=== PATIENT | female | born 1970 | race Caucasian/White ===

== ENCOUNTER 2020-09-03 11:28 | Inpatient (IN) | payer OTHER ==
[~2020-09-03] VITALS: Ht 162.6 cm; Wt 111.1 kg
[2020-09-03] MEDS ORDERED: PANTOPRAZOLE 40 MG 10ML VIAL IV STA (11:40)
[2020-09-03] MEDS ORDERED: HYDROMORPHONE 1MG/1ML INJ IV STA (11:40)
[2020-09-03] MEDS ORDERED: SODIUM CHLORIDE 0.9% 1000ML 1,000 ML IV STA (11:40)
[2020-09-03] MEDS ORDERED: ONDANSETRON HCL INJ 2MG/ML 2ML 2 MG/ML VIAL IV STA (11:40)
[2020-09-03 11:53] LABS: BASOPHILS # (AUTO) 0.1 (0.0-0.1); BASOPHILS % 0.3 % (0.0-1.0); EOSINOPHILS # (AUTO) 0.1 (0.0-0.4); EOSINOPHILS % 0.4 % (0.0-6.0); HEMATOCRIT 46.7 % (34.2-44.1); HEMOGLOBIN 16.5 g/dL (12.0-16.0); LYMPHOCYTES # (AUTO) 2.6 (1.0-3.2); LYMPHOCYTES % 16.6 % (18.0-39.1); MEAN CORPUSCULAR HEMOGLOBIN 30.7 pg (28-32); MEAN CORPUSCULAR HGB CONC 35.3 g/dL (31-35); MONOCYTES # (AUTO) 1.2 (0.2-0.8); MONOCYTES % 7.6 % (4.4-11.3); NEUTROPHILS # (AUTO) 11.6 (2.1-6.9); NEUTROPHILS % 74.6 % (38.7-80.0); PLATELET COUNT 333 x10e3/uL (140-360); RED BLOOD COUNT 5.37 x10e6/uL (3.6-5.1); RED CELL DISTRIBUTION WIDTH 14.7 % (11.7-14.4)
[2020-09-03 11:56] LABS: CLARITY,URINE CLOUDY (CLEAR); COLOR,URINE YELLOW (YELLOW); KETONES,URINE TRACE (NEGATIVE); LEUKOCYTE ESTERASE ,URINE NEGATIVE (NEGATIVE); NITRITE,URINE NEGATIVE (NEGATIVE); PROTEIN,URINE DIPSTICK 2+ (NEGATIVE); URINE UROBILINOGEN 0.2 mg/dL (0.2 - 1)
[2020-09-03 12:04] LABS: INR 0.89; PARTIAL THROMBOPLASTIN TIME 29.7 seconds (23.8-35.5); PROTHROMBIN TIME 12.6 seconds (11.9-14.5)
[2020-09-03 12:11] LABS: BACTERIA,URINE MANY /HPF; EPITHELIAL CELLS,URINE MANY /LPF
[2020-09-03 12:12] LABS: MUCUS,URINE MODERATE (RARE)
[2020-09-03 12:15] LABS: ALANINE AMINOTRANSFERASE 110 IU/L (0-55); ALBUMIN 2.9 g/dL (3.5-5.0); ALBUMIN/GLOBULIN RATIO 0.6 (0.8-2.0); ALKALINE PHOSPHATASE 465 IU/L (40-150); AMYLASE 903 U/L (25-125); ANION GAP 13.8 mmol/L (8-16); BLOOD UREA NITROGEN 11 mg/dL (7-26); BUN/CREATININE RATIO 13 (6-25); CALCIUM 8.4 mg/dL (8.4-10.2); CARBON DIOXIDE 32 mmol/L (22-29); CHLORIDE 84 mmol/L (98-107); CREATINE KINASE 21 IU/L (29-168); CREATININE, SERUM 0.88 mg/dL (0.57-1.11); EST GLOMERULAR FILTRATION RATE > 60 ML/MIN (60-); MAGNESIUM 3.3 MG/DL (1.3-2.1); SODIUM 127 mmol/L (136-145)
[2020-09-03 12:18] LABS: GLUCOSE 419 mg/dL (74-118); POTASSIUM 2.8 mmol/L (3.5-5.1)
[2020-09-03 12:39] LABS: LIPASE 2374 U/L (8-78)
[2020-09-03 12:43] LABS: CHOL/HDL RATIO 15.5 (3.0-3.6); CHOLESTEROL 263 MD/DL (0-199); HDL CHOLESTEROL 17 MG/DL (40-60); TRIGLYCERIDES 462 MG/DL (0-149)
[2020-09-03] MEDS ORDERED: POTASSIUM CHLORIDE 10MEQ/100ML 200 ML IV ONE (12:45)
[2020-09-03] MEDS ORDERED: KCL 20MEQ/.9 SOD CHL 1,000 ML IV ONE ×3 (12:45→18:00)
[2020-09-03 12:55] LABS: AMPHETAMINES SCREEN,URINE NEGATIVE (NEGATIVE); BENZODIAZEPINES SCREEN,URINE NEGATIVE (NEGATIVE); PHENCYCLIDINE SCREEN,URINE NEGATIVE (NEGATIVE)
[2020-09-03] MEDS ORDERED: INSULIN REGULAR, HUMAN 100 UNIT/1 ML 3ML VIAL IV ONE (13:00)
[2020-09-03] MEDS ORDERED: SODIUM CHLORIDE 0.9% 50ML 50 ML ONE (13:09)
[2020-09-03] MEDS ORDERED: IOPAMIDOL 370 MG/ML 200 ML INFUS..BTL INJ ONE (13:09)
[2020-09-03] MEDS: PIPERACILLIN/TAZOBAC 3.375 GM in SODIUM CHLORIDE 0.9% 50ML 50 ML IV SCH ×2 (13:28→19:35)
[2020-09-03] MEDS ORDERED: POTASSIUM CHLORIDE 20 MEQ TAB CR PO STA (14:38)
[2020-09-03] MEDS ORDERED: DEXTROSE 50% SYRINGE 50 ML IV PRN (14:45)
[2020-09-03] MEDS ORDERED: INSULIN REGULAR, HUMAN 3ML VL 100 UNIT in SODIUM CHLORIDE 0.9% 99 ML IV SCH ×2 (15:30)
[2020-09-03 15:51] VITALS: BP 137/88
[2020-09-03] MEDS ORDERED: SODIUM CHLORIDE 0.9% 1000ML 1,000 ML ONE (16:09)
[2020-09-03 17:39] VITALS: BP 123/76
[2020-09-03] MEDS: ONDANSETRON HCL INJ 2MG/ML 2ML 2 MG/ML VIAL IV PRN ×2 (17:45→21:49)
[2020-09-03] MEDS: HYDROMORPHONE 1MG/1ML INJ IV PRN ×2 (17:45→21:49)
[2020-09-03] MEDS ORDERED: POTASSIUM CHLORIDE 20 MEQ TAB CR PO ONE (18:02)
[2020-09-03 19:00] VITALS: BP 130/81
[2020-09-03 21:07] LABS: CREATINE KINASE MB 0.4 ng/mL (0-5.0)
[2020-09-03 23:00] VITALS: BP 124/70
[2020-09-03] MEDS ORDERED: LACTATED RINGER'S 1,000 ML INJ ONE (23:45)
[2020-09-04] VITALS (9 sets, daily range): BP systolic 113–139; BP diastolic 58–81
[2020-09-04] MEDS: PIPERACILLIN/TAZOBAC 3.375 GM in SODIUM CHLORIDE 0.9% 50ML 50 ML IV SCH ×4 (00:53→18:59)
[2020-09-04] MEDS: ONDANSETRON HCL INJ 2MG/ML 2ML 2 MG/ML VIAL IV PRN ×4 (03:05→21:07)
[2020-09-04] MEDS: HYDROMORPHONE 1MG/1ML INJ IV PRN ×5 (03:05→21:07)
[2020-09-04 05:42] LABS: BASOPHILS # (AUTO) 0.1 (0.0-0.1); BASOPHILS % 0.3 % (0.0-1.0); EOSINOPHILS # (AUTO) 0.2 (0.0-0.4); EOSINOPHILS % 1.1 % (0.0-6.0); HEMATOCRIT 45.6 % (34.2-44.1); HEMOGLOBIN 15.4 g/dL (12.0-16.0); LYMPHOCYTES # (AUTO) 2.3 (1.0-3.2); LYMPHOCYTES % 12.8 % (18.0-39.1); MEAN CORPUSCULAR HEMOGLOBIN 30.9 pg (28-32); MEAN CORPUSCULAR HGB CONC 33.8 g/dL (31-35); MEAN CORPUSCULAR VOLUME 91.4 fL (81-99); MONOCYTES # (AUTO) 1.9 (0.2-0.8); MONOCYTES % 10.5 % (4.4-11.3); NEUTROPHILS # (AUTO) 13.3 (2.1-6.9); NEUTROPHILS % 74.7 % (38.7-80.0); PLATELET COUNT 354 x10e3/uL (140-360); RED BLOOD COUNT 4.99 x10e6/uL (3.6-5.1); RED CELL DISTRIBUTION WIDTH 15.1 % (11.7-14.4)
[2020-09-04 06:15] LABS: ALANINE AMINOTRANSFERASE 80 IU/L (0-55); ALBUMIN 2.6 g/dL (3.5-5.0); ALBUMIN/GLOBULIN RATIO 0.5 (0.8-2.0); ALKALINE PHOSPHATASE 362 IU/L (40-150); AMYLASE 610 U/L (25-125); ANION GAP 16.2 mmol/L (8-16); BLOOD UREA NITROGEN 9 mg/dL (7-26); BUN/CREATININE RATIO 13 (6-25); CARBON DIOXIDE 26 mmol/L (22-29); CHLORIDE 93 mmol/L (98-107); EST GLOMERULAR FILTRATION RATE > 60 ML/MIN (60-); GLUCOSE 125 mg/dL (74-118); LIPASE 958 U/L (8-78); POTASSIUM 3.2 mmol/L (3.5-5.1); SODIUM 132 mmol/L (136-145)
[2020-09-04] MEDS ORDERED: DEXTROSE 50% SYRINGE 50 ML IV PRN ×2 (07:45→14:45)
[2020-09-04] MEDS ORDERED: INSULIN REGULAR, HUMAN 3ML VL 300 UNIT in SODIUM CHLORIDE 0.45% 100 ML 300 ML IV SCH ×2 (07:45)
[2020-09-04] MEDS ORDERED: DEXTROSE 5%/0.45% SOD CHL 1,000 ML IV SCH (07:45)
[2020-09-04] MEDS: PANTOPRAZOLE 40 MG 10ML VIAL IV SCH (09:28)
[2020-09-04] MEDS: FENOFIBRATE 145 MG TAB PO SCH (09:30)
[2020-09-04] MEDS ORDERED: ACETAMINOPHEN/CODEINE 300MG - 30MG TAB PO PRN (10:15)
[2020-09-04] MEDS ORDERED: POTASSIUM CHLORIDE 20 MEQ TAB CR PO PRN (10:15)
[2020-09-04] MEDS ORDERED: INSULIN REGULAR, HUMAN 3ML VL 100 UNIT in SODIUM CHLORIDE 0.9% 100 ML IV SCH ×2 (13:45)
[2020-09-04 15:29] LABS: FREE T4 (FREE THYROXINE) 0.98 ng/dL (0.8-1.8); THYROID STIMULATING HORMONE 0.692 uIU/mL (0.350-4.940)
[2020-09-04] MEDS: DEXTROSE 5%/0.45% SOD CHL 1,000 ML IV SCH (17:04)
[2020-09-04] MEDS: INSULIN REGULAR, HUMAN 3ML VL 100 UNIT in SODIUM CHLORIDE 0.9% 100 ML IV SCH ×2 (20:13)
[2020-09-04] MEDS: HEPARIN SOD (PORCINE) 5,000 UNIT/ML VIAL SC SCH (21:06)
[2020-09-04] MEDS: ATORVASTATIN 10 MG TAB PO SCH (21:06)
[2020-09-05] VITALS (9 sets, daily range): BP systolic 103–124; BP diastolic 58–78
[2020-09-05] MEDS: INSULIN REGULAR, HUMAN 3ML VL 100 UNIT in SODIUM CHLORIDE 0.9% 100 ML IV SCH ×4 (00:07→09:09)
[2020-09-05] MEDS: DEXTROSE 5%/0.45% SOD CHL 1,000 ML IV SCH ×2 (00:33→10:08)
[2020-09-05] MEDS: ONDANSETRON HCL INJ 2MG/ML 2ML 2 MG/ML VIAL IV PRN ×6 (01:08→20:35)
[2020-09-05] MEDS: HYDROMORPHONE 1MG/1ML INJ IV PRN ×6 (01:08→20:35)
[2020-09-05] MEDS: PIPERACILLIN/TAZOBAC 3.375 GM in SODIUM CHLORIDE 0.9% 50ML 50 ML IV SCH ×4 (01:08→20:23)
[2020-09-05] MEDS ORDERED: TRAMADOL HCL 50 MG TAB PO PRN (02:00)
[2020-09-05 05:26] LABS: BASOPHILS # (AUTO) 0.1 (0.0-0.1); BASOPHILS % 0.6 % (0.0-1.0); EOSINOPHILS # (AUTO) 0.6 (0.0-0.4); EOSINOPHILS % 3.4 % (0.0-6.0); HEMATOCRIT 44.1 % (34.2-44.1); LYMPHOCYTES # (AUTO) 2.3 (1.0-3.2); MEAN CORPUSCULAR HEMOGLOBIN 31.4 pg (28-32); MEAN CORPUSCULAR VOLUME 92.3 fL (81-99); MONOCYTES # (AUTO) 1.9 (0.2-0.8); MONOCYTES % 10.5 % (4.4-11.3); NEUTROPHILS # (AUTO) 12.6 (2.1-6.9); NEUTROPHILS % 71.8 % (38.7-80.0); PLATELET COUNT 429 x10e3/uL (140-360); RED BLOOD COUNT 4.78 x10e6/uL (3.6-5.1); RED CELL DISTRIBUTION WIDTH 14.9 % (11.7-14.4)
[2020-09-05 05:42] LABS: PROTHROMBIN TIME 13.8 seconds (11.9-14.5)
[2020-09-05 05:47] LABS: ALANINE AMINOTRANSFERASE 64 IU/L (0-55); ALBUMIN 2.4 g/dL (3.5-5.0); ALBUMIN/GLOBULIN RATIO 0.4 (0.8-2.0); ALKALINE PHOSPHATASE 311 IU/L (40-150); BLOOD UREA NITROGEN 7 mg/dL (7-26); BUN/CREATININE RATIO 10 (6-25); CALCIUM 8.4 mg/dL (8.4-10.2); CARBON DIOXIDE 26 mmol/L (22-29); CHLORIDE 94 mmol/L (98-107); CREATININE, SERUM 0.73 mg/dL (0.57-1.11); EST GLOMERULAR FILTRATION RATE > 60 ML/MIN (60-); GLUCOSE 137 mg/dL (74-118); SODIUM 133 mmol/L (136-145)
[2020-09-05] MEDS: FENOFIBRATE 145 MG TAB PO SCH (09:03)
[2020-09-05] MEDS: PANTOPRAZOLE 40 MG 10ML VIAL IV SCH (09:03)
[2020-09-05] MEDS: HEPARIN SOD (PORCINE) 5,000 UNIT/ML VIAL SC SCH ×2 (09:08→20:24)
[2020-09-05] MEDS ORDERED: SODIUM CHLORIDE 0.9% 50ML 50 ML ONE (10:05)
[2020-09-05] MEDS ORDERED: GADOBENATE DIMEGLUMINE 1 ML IV ONE (10:05)
[2020-09-05] MEDS: POTASSIUM CHLORIDE 40 MEQ in DEXTROSE 5%/0.45% SOD CHL 1,000 ML IV SCH ×2 (14:25→22:58)
[2020-09-05] MEDS: ATORVASTATIN 10 MG TAB PO SCH (20:23)
[2020-09-05] MEDS ORDERED: INSULIN GLARGINE 100 UNITS/ML VIAL SQ SCH (21:00)
[2020-09-06] VITALS (7 sets, daily range): BP systolic 110–127; BP diastolic 62–77
[2020-09-06] MEDS: HYDROMORPHONE 1MG/1ML INJ IV PRN ×8 (00:14→23:09)
[2020-09-06] MEDS: ONDANSETRON HCL INJ 2MG/ML 2ML 2 MG/ML VIAL IV PRN ×6 (00:14→23:09)
[2020-09-06] MEDS: PIPERACILLIN/TAZOBAC 3.375 GM in SODIUM CHLORIDE 0.9% 50ML 50 ML IV SCH ×4 (01:48→20:15)
[2020-09-06 04:51] LABS: BASOPHILS # (AUTO) 0.1 (0.0-0.1); BASOPHILS % 0.5 % (0.0-1.0); EOSINOPHILS # (AUTO) 0.8 (0.0-0.4); EOSINOPHILS % 4.8 % (0.0-6.0); HEMATOCRIT 39.1 % (34.2-44.1); HEMOGLOBIN 13.1 g/dL (12.0-16.0); LYMPHOCYTES # (AUTO) 2.3 (1.0-3.2); LYMPHOCYTES % 13.6 % (18.0-39.1); MEAN CORPUSCULAR HGB CONC 33.5 g/dL (31-35); MEAN CORPUSCULAR VOLUME 92.7 fL (81-99); MONOCYTES # (AUTO) 1.9 (0.2-0.8); MONOCYTES % 11.2 % (4.4-11.3); NEUTROPHILS # (AUTO) 11.6 (2.1-6.9); PLATELET COUNT 481 x10e3/uL (140-360); RED BLOOD COUNT 4.22 x10e6/uL (3.6-5.1); RED CELL DISTRIBUTION WIDTH 14.7 % (11.7-14.4)
[2020-09-06 05:12] LABS: ALANINE AMINOTRANSFERASE 41 IU/L (0-55); ALBUMIN/GLOBULIN RATIO 0.4 (0.8-2.0); ALKALINE PHOSPHATASE 241 IU/L (40-150); AMYLASE 125 U/L (25-125); ANION GAP 14.1 mmol/L (8-16); BLOOD UREA NITROGEN 5 mg/dL (7-26); BUN/CREATININE RATIO 8 (6-25); CALCIUM 8.1 mg/dL (8.4-10.2); CARBON DIOXIDE 27 mmol/L (22-29); CHLORIDE 96 mmol/L (98-107); CREATININE, SERUM 0.63 mg/dL (0.57-1.11); EST GLOMERULAR FILTRATION RATE > 60 ML/MIN (60-); GLUCOSE 118 mg/dL (74-118); LIPASE 162 U/L (8-78); POTASSIUM 3.1 mmol/L (3.5-5.1); SODIUM 134 mmol/L (136-145)
[2020-09-06 05:53] LABS: MAGNESIUM 2.2 MG/DL (1.3-2.1); PHOSPHORUS 2.4 MG/DL (2.3-4.7)
[2020-09-06] MEDS: POTASSIUM CHLORIDE 40 MEQ in DEXTROSE 5%/0.45% SOD CHL 1,000 ML IV SCH ×2 (07:10→16:36)
[2020-09-06] MEDS: FENOFIBRATE 145 MG TAB PO SCH (08:35)
[2020-09-06] MEDS: PANTOPRAZOLE 40 MG 10ML VIAL IV SCH (08:35)
[2020-09-06] MEDS: HEPARIN SOD (PORCINE) 5,000 UNIT/ML VIAL SC SCH ×2 (08:36→20:16)
[2020-09-06] MEDS ORDERED: INSULIN LISPRO 100 UNIT/1 ML 3ML VIAL SQ NR (14:15)
[2020-09-06] MEDS ORDERED: DEXTROSE 50% SYRINGE 50 ML IV PRN (14:15)
[2020-09-06] MEDS ORDERED: POTASSIUM CHLORIDE 10MEQ EA PO ONE (15:00)
[2020-09-06] MEDS: INSULIN LISPRO 100 UNIT/1 ML 3ML VIAL SQ SCH ×2 (16:30→20:16)
[2020-09-06] MEDS: ATORVASTATIN 10 MG TAB PO SCH (20:15)
[2020-09-06] MEDS: INSULIN GLARGINE 100 UNITS/ML VIAL SQ SCH (20:16)
[2020-09-07] VITALS (9 sets, daily range): BP systolic 108–139; BP diastolic 66–79
[2020-09-07] MEDS: PIPERACILLIN/TAZOBAC 3.375 GM in SODIUM CHLORIDE 0.9% 50ML 50 ML IV SCH ×4 (01:32→20:22)
[2020-09-07] MEDS: HYDROMORPHONE 1MG/1ML INJ IV PRN ×5 (02:14→20:50)
[2020-09-07 05:57] LABS: BASOPHILS # (AUTO) 0.1 (0.0-0.1); BASOPHILS % 0.7 % (0.0-1.0); EOSINOPHILS # (AUTO) 0.8 (0.0-0.4); EOSINOPHILS % 5.4 % (0.0-6.0); HEMATOCRIT 37.9 % (34.2-44.1); HEMOGLOBIN 12.5 g/dL (12.0-16.0); LYMPHOCYTES # (AUTO) 2.4 (1.0-3.2); LYMPHOCYTES % 15.8 % (18.0-39.1); MEAN CORPUSCULAR HEMOGLOBIN 30.9 pg (28-32); MEAN CORPUSCULAR VOLUME 93.6 fL (81-99); MONOCYTES % 13.1 % (4.4-11.3); NEUTROPHILS # (AUTO) 9.8 (2.1-6.9); NEUTROPHILS % 64.2 % (38.7-80.0); PLATELET COUNT 535 x10e3/uL (140-360); RED BLOOD COUNT 4.05 x10e6/uL (3.6-5.1); RED CELL DISTRIBUTION WIDTH 14.7 % (11.7-14.4)
[2020-09-07 06:22] LABS: ALANINE AMINOTRANSFERASE 34 IU/L (0-55); ALBUMIN/GLOBULIN RATIO 0.4 (0.8-2.0); ALKALINE PHOSPHATASE 251 IU/L (40-150); ANION GAP 13.5 mmol/L (8-16); BLOOD UREA NITROGEN 5 mg/dL (7-26); BUN/CREATININE RATIO 7 (6-25); CALCIUM 8.1 mg/dL (8.4-10.2); CARBON DIOXIDE 25 mmol/L (22-29); CHLORIDE 99 mmol/L (98-107); CREATININE, SERUM 0.68 mg/dL (0.57-1.11); EST GLOMERULAR FILTRATION RATE > 60 ML/MIN (60-); GLUCOSE 147 mg/dL (74-118); POTASSIUM 3.5 mmol/L (3.5-5.1); SODIUM 134 mmol/L (136-145)
[2020-09-07 06:51] LABS: CHOL/HDL RATIO 8.3 (3.0-3.6)
[2020-09-07] MEDS ORDERED: SODIUM CHLORIDE 0.9% 50ML 50 ML ONE ×3 (07:14→20:19)
[2020-09-07] MEDS ORDERED: PIPERACILLIN/TAZOBAC 3.375 GM VIAL ONE ×3 (07:14→20:19)
[2020-09-07] MEDS: INSULIN LISPRO 100 UNIT/1 ML 3ML VIAL SQ SCH ×4 (08:00→20:43)
[2020-09-07 08:43] LABS: ANISOCYTOSIS SLIGHT; BAND NEUTROPHILS % (MANUAL) 1 %; EOSINOPHILS % (MANUAL) 4 % (0-7); LYMPHOCYTES % (MANUAL) 13 % (19-48); MONOCYTES % (MANUAL) 11 % (3.4-9.0); NEUTROPHILS % (MANUAL) 69 % (40-74); PLATELET ESTIMATE MODERATELY INCREASED; PLATELET MORPHOLOGY COMMENT NORMAL; RBC MORPHOLOGY COMMENT NORMAL
[2020-09-07] MEDS: FENOFIBRATE 145 MG TAB PO SCH (09:04)
[2020-09-07] MEDS: PANTOPRAZOLE 40 MG 10ML VIAL IV SCH (09:04)
[2020-09-07] MEDS: HEPARIN SOD (PORCINE) 5,000 UNIT/ML VIAL SC SCH ×2 (09:56→21:39)
[2020-09-07] MEDS: ATORVASTATIN 10 MG TAB PO SCH (20:43)
[2020-09-07] MEDS: ONDANSETRON HCL INJ 2MG/ML 2ML 2 MG/ML VIAL IV PRN (20:50)
[2020-09-07] MEDS: INSULIN GLARGINE 100 UNITS/ML VIAL SQ SCH (21:00)
[2020-09-08] MEDS: HYDROMORPHONE 1MG/1ML INJ IV PRN ×4 (01:07→12:24)
[2020-09-08] MEDS ORDERED: PIPERACILLIN/TAZOBAC 3.375 GM VIAL ONE ×2 (01:20→07:36)
[2020-09-08] MEDS: PIPERACILLIN/TAZOBAC 3.375 GM in SODIUM CHLORIDE 0.9% 50ML 50 ML IV SCH ×2 (01:55→08:00)
[2020-09-08] MEDS: ONDANSETRON HCL INJ 2MG/ML 2ML 2 MG/ML VIAL IV PRN ×2 (05:19→08:33)
[2020-09-08 05:25] VITALS: BP 153/79
[2020-09-08 06:04] LABS: BASOPHILS # (AUTO) 0.1 (0.0-0.1); BASOPHILS % 0.8 % (0.0-1.0); EOSINOPHILS # (AUTO) 0.9 (0.0-0.4); EOSINOPHILS % 6.1 % (0.0-6.0); HEMATOCRIT 38.7 % (34.2-44.1); HEMOGLOBIN 12.7 g/dL (12.0-16.0); LYMPHOCYTES # (AUTO) 2.6 (1.0-3.2); LYMPHOCYTES % 17.7 % (18.0-39.1); MEAN CORPUSCULAR HEMOGLOBIN 30.8 pg (28-32); MEAN CORPUSCULAR HGB CONC 32.8 g/dL (31-35); MEAN CORPUSCULAR VOLUME 93.9 fL (81-99); MONOCYTES # (AUTO) 1.9 (0.2-0.8); MONOCYTES % 13.1 % (4.4-11.3); NEUTROPHILS # (AUTO) 8.8 (2.1-6.9); PLATELET COUNT 563 x10e3/uL (140-360); RED BLOOD COUNT 4.12 x10e6/uL (3.6-5.1); RED CELL DISTRIBUTION WIDTH 14.8 % (11.7-14.4)
[2020-09-08 06:26] LABS: ANION GAP 14.6 mmol/L (8-16); BLOOD UREA NITROGEN < 5 mg/dL (7-26); CALCIUM 8.4 mg/dL (8.4-10.2); CARBON DIOXIDE 24 mmol/L (22-29); CHLORIDE 101 mmol/L (98-107); CREATININE, SERUM 0.64 mg/dL (0.57-1.11); EST GLOMERULAR FILTRATION RATE > 60 ML/MIN (60-); GLUCOSE 133 mg/dL (74-118); POTASSIUM 3.6 mmol/L (3.5-5.1); SODIUM 136 mmol/L (136-145)
[2020-09-08 06:42] LABS: BUN/CREATININE RATIO 8 (6-25)
[2020-09-08] MEDS ORDERED: SODIUM CHLORIDE 0.9% 50ML 50 ML ONE (07:36)
[2020-09-08 07:41] VITALS: BP 116/69
[2020-09-08 08:09] VITALS: BP 116/69
[2020-09-08] MEDS: INSULIN LISPRO 100 UNIT/1 ML 3ML VIAL SQ SCH ×2 (08:17→11:30)
[2020-09-08 09:51] LABS: EOSINOPHILS % (MANUAL) 4 % (0-7); LYMPHOCYTES % (MANUAL) 17 % (19-48); MONOCYTES % (MANUAL) 9 % (3.4-9.0); MYELOCYTES % (MANUAL) 2 % (0-0); NEUTROPHILS % (MANUAL) 63 % (40-74); PLATELET ESTIMATE MODERATELY INCREASED
[2020-09-08 09:52] LABS: PLATELET MORPHOLOGY COMMENT RARE EDTA CLUMPING; RBC MORPHOLOGY COMMENT NORMAL
[2020-09-08] MEDS: PANTOPRAZOLE 40 MG 10ML VIAL IV SCH (09:58)
[2020-09-08] MEDS: FENOFIBRATE 145 MG TAB PO SCH (09:58)
[2020-09-08] MEDS: HEPARIN SOD (PORCINE) 5,000 UNIT/ML VIAL SC SCH (09:59)
[2020-09-08 11:40] VITALS: BP 118/70
[2020-09-08] MEDS ORDERED: LIPOFEN150 MG PO (12:31)
[2020-09-08] MEDS ORDERED: ATORVASTATIN CA10 MG PO (12:31)
[2020-09-08] MEDS ORDERED: ULTRAM 50MG50 MG PO (12:32)
[2020-09-08] MEDS ORDERED: NOVOLOG100 UNIT/1 SC (12:36)
[2020-09-08] MEDS ORDERED: PANTOPRAZOLE SO40 MG PO (12:36)
[2020-09-08] MEDS ORDERED: AUGMENTIN 500-1 EACH PO (12:36)
[2020-09-08] MEDS ORDERED: ULTRAM50 MG PO (14:41)
== END 2020-09-08 16:00 | disposition home or self-care (01) | DRG 438 ==
LOC: ER 12:26 → ERHOLD 15:47 → ICU 15:49 → MED/SURG3 09-07 04:00
PROVIDERS: ADMIT Internal Medicine; ATTEND Internal Medicine
DX: K85.90 Acute pancreatitis without necrosis or infection, unspecified (principal); E11.10 Type 2 diabetes mellitus with ketoacidosis without coma; K56.7 Ileus, unspecified; E87.6 Hypokalemia; K76.0 Fatty (change of) liver, not elsewhere classified; E78.5 Hyperlipidemia, unspecified; Z20.822 Contact with and (suspected) exposure to COVID-19
CPT/HCPCS: 36415; 71045; 74177; 74183; 80048; 80053; 80061; 80307; 80329; 81001; 82150; 82550; 82553; 82948; 83036; 83690; 83735; 84100; 84439; 84443; 84478; 84484; 85025; 85610; 85730; 87086; 93005; 99285; J1170; J1644; J1815; J1817; J2405; J2543; J3480; J7030; J7050; Q9967; U0002

== ENCOUNTER 2024-09-23 21:20 | Observation (INO) | payer OTHER ==
[~2024-09-23] VITALS: Ht 162.6 cm; Wt 104.8 kg
[~2024-09-23 21:20] MED LIST: ATORVASTATIN CA10 MG PO; AUGMENTIN 500-1 EACH PO; LIPOFEN150 MG PO; NOVOLOG100 UNIT/1 SC; PANTOPRAZOLE SO40 MG PO; ULTRAM 50MG50 MG PO; ULTRAM50 MG PO
[2024-09-23 21:22] VITALS: TEMP 98.1
[2024-09-23 22:08] LABS: BASOPHILS % 0.5 % (0.0-1.0); EOSINOPHILS # (AUTO) 0.3 (0.0-0.4); EOSINOPHILS % 3.6 % (0.0-6.0); HEMATOCRIT 44.3 % (34.2-44.1); HEMOGLOBIN 14.5 g/dL (12.0-16.0); LYMPHOCYTES # (AUTO) 2.3 (1.0-3.2); LYMPHOCYTES % 26.5 % (18.0-39.1); MEAN CORPUSCULAR HEMOGLOBIN 29.5 pg (28-32); MEAN CORPUSCULAR HGB CONC 32.7 g/dL (31-35); MONOCYTES # (AUTO) 0.7 (0.2-0.8); MONOCYTES % 8.2 % (4.4-11.3); NEUTROPHILS # (AUTO) 5.2 (2.1-6.9); NEUTROPHILS % 60.8 % (38.7-80.0); PLATELET COUNT 317 x10e3/uL (140-360); RED BLOOD COUNT 4.92 x10e6/uL (3.6-5.1); RED CELL DISTRIBUTION WIDTH 13.6 % (11.7-14.4); WHITE BLOOD COUNT 8.55 x10e3/uL (4.8-10.8)
[2024-09-23 22:21] LABS: ALBUMIN/GLOBULIN RATIO 1.1 (0.8-2.0); BILIRUBIN,TOTAL 0.4 mg/dL (0.2-1.2); CALCIUM 9.3 mg/dL (8.4-10.2); TOTAL PROTEIN 7.7 g/dL (6.5-8.1)
[2024-09-23 22:35] LABS: CREATININE, SERUM 0.91 mg/dL (0.57-1.11)
[2024-09-23 23:45] VITALS: PULSE 66; RESP 26
[2024-09-23] MEDS ORDERED: ONDANSETRON HCL INJ 2MG/ML 2ML 2 MG/ML VIAL IV PRN (23:45)
[2024-09-23] MEDS ORDERED: Morphine 2mg Syringe 2 MG/ML SYR IV PRN (23:45)
[2024-09-23] MEDS ORDERED: DEXTROSE 50% SYRINGE 50 ML IV PRN (23:45)
[2024-09-24] VITALS (8 sets, daily range): BP systolic 115–124; BP diastolic 72–84; PULSE 61–80; RESP 18; TEMP 97.5–98; O2SAT 94–99
[2024-09-24] MEDS: ACETAMINOPHEN 325 MG TAB PO ONE (00:28)
[2024-09-24] MEDS ORDERED: FUROSEMIDE40 MG PO (00:57)
[2024-09-24] MEDS ORDERED: OZEMPIC1 MG/0.71 (00:57)
[2024-09-24] MEDS ORDERED: METFORMIN HCL850 MG PO (00:57)
[2024-09-24] MEDS ORDERED: METOPROLOL TART50 MG PO (00:57)
[2024-09-24] MEDS ORDERED: JARDIANCE10 MG (00:57)
[2024-09-24] MEDS ORDERED: ASPIRIN81 MG PO (00:57)
[2024-09-24] MEDS ORDERED: MELATONIN 5 MG TABLET PO PRN (02:30)
[2024-09-24] MEDS ORDERED: HYDRALAZINE HCL 20 MG/ML VIAL IV PRN (02:30)
[2024-09-24] MEDS ORDERED: DOCUSATE SODIUM 100 MG CAP PO PRN (02:30)
[2024-09-24] MEDS ORDERED: SIMETHICONE 80 MG CHEW PO PRN (02:30)
[2024-09-24] MEDS ORDERED: BENZONATATE 100 MG CAP PO PRN (02:30)
[2024-09-24] MEDS ORDERED: LIDOCAINE 4% PATCH TP PRN (02:30)
[2024-09-24] MEDS ORDERED: POTASSIUM CHLORIDE 20 MEQ TAB CR PO PRN (02:30)
[2024-09-24] MEDS ORDERED: ALBUTEROL/IPRATROPIUM 3 ML NEB NEB PRN (02:30)
[2024-09-24] MEDS ORDERED: DIPHENHYDRAMINE HCL 25 MG CAP PO PRN (02:30)
[2024-09-24] MEDS ORDERED: DEXTROSE 50% SYRINGE 50 ML IV PRN (02:30)
[2024-09-24 05:07] LABS: BASOPHILS # (AUTO) 0.1 (0.0-0.1); BASOPHILS % 0.6 % (0.0-1.0); EOSINOPHILS # (AUTO) 0.4 (0.0-0.4); HEMOGLOBIN 14.2 g/dL (12.0-16.0); LYMPHOCYTES # (AUTO) 2.4 (1.0-3.2); LYMPHOCYTES % 26.9 % (18.0-39.1); MEAN CORPUSCULAR HEMOGLOBIN 29.6 pg (28-32); MEAN CORPUSCULAR HGB CONC 32.3 g/dL (31-35); MEAN CORPUSCULAR VOLUME 91.9 fL (81-99); MONOCYTES # (AUTO) 0.8 (0.2-0.8); MONOCYTES % 9.1 % (4.4-11.3); NEUTROPHILS # (AUTO) 5.2 (2.1-6.9); NEUTROPHILS % 59.2 % (38.7-80.0); PLATELET COUNT 297 x10e3/uL (140-360); RED BLOOD COUNT 4.79 x10e6/uL (3.6-5.1); RED CELL DISTRIBUTION WIDTH 13.6 % (11.7-14.4); WHITE BLOOD COUNT 8.77 x10e3/uL (4.8-10.8)
[2024-09-24 05:33] LABS: ALBUMIN 3.5 g/dL (3.5-5.0); ALBUMIN/GLOBULIN RATIO 0.9 (0.8-2.0); ANION GAP 15.7 mmol/L (8-16); BILIRUBIN,TOTAL 0.4 mg/dL (0.2-1.2); CREATININE, SERUM 0.8 mg/dL (0.57-1.11); POTASSIUM 3.7 mmol/L (3.5-5.1); TOTAL PROTEIN 7.3 g/dL (6.5-8.1)
[2024-09-24] MEDS: INSULIN REGULAR, HUMAN 100 UNIT/1 ML SQ SCH (07:30)
[2024-09-24 07:37] LABS: TROPONIN I 0.009 ng/mL (0-0.300)
[2024-09-24] MEDS ORDERED: ASPIRIN 81 MG ENTERIC COATED PO SCH (09:00)
[2024-09-24] MEDS: PANTOPRAZOLE SOD 40 MG TABEC PO SCH (10:10)
[2024-09-24] MEDS: CLOPIDOGREL BISULFATE 75 MG TAB PO ONE (10:10)
[2024-09-24] MEDS: ASPIRIN 81 MG ENTERIC COATED PO SCH (10:10)
[2024-09-24 14:47] LABS: TROPONIN I 0.009 ng/mL (0-0.300)
[2024-09-24] MEDS ORDERED: REGADENOSON 0.4 MG/5 ML SYR IV ONE (15:21)
[2024-09-24] MEDS: ACETAMINOPHEN 325 MG TAB PO PRN (16:41)
[2024-09-24] MEDS: METOPROLOL TARTRATE 50 MG TAB PO SCH (16:45)
[2024-09-24] MEDS: ENOXAPARIN SOD INJ 40 MG/0.4 ML SYR SC SCH (16:45)
[2024-09-24] MEDS: ATORVASTATIN 40 MG TAB PO SCH (21:42)
[2024-09-24] MEDS: HYDROCODONE/APAP 5MG-325MG TAB PO PRN (21:51)
[2024-09-25] VITALS (7 sets, daily range): BP systolic 106–136; BP diastolic 69–88; PULSE 57–65; RESP 16–18; TEMP 97.6–98.1; O2SAT 96–98
[2024-09-25] MEDS: CLOPIDOGREL BISULFATE 75 MG TAB PO SCH (09:45)
[2024-09-25] MEDS ORDERED: ONDANSETRON HCL 4 MG ORAL DISINTEGRATING TAB PO PRN (10:15)
== END 2024-09-25 14:35 | disposition home or self-care (01) ==
LOC: ER 21:32 → ERHOLD 23:41 → MED/SURG 23:56
PROVIDERS: ADMIT Internal Medicine; ATTEND Internal Medicine
DX: R07.89 Other chest pain (principal); R00.2 Palpitations; E11.9 Type 2 diabetes mellitus without complications; I10 Essential (primary) hypertension; E78.5 Hyperlipidemia, unspecified; E66.01 Morbid (severe) obesity due to excess calories; Z68.39 Body mass index [BMI] 39.0-39.9, adult; I25.10 Atherosclerotic heart disease of native coronary artery without angina pectoris; Z95.1 Presence of aortocoronary bypass graft; Z79.85 Long-term (current) use of injectable non-insulin antidiabetic drugs; Z79.84 Long term (current) use of oral hypoglycemic drugs
CPT/HCPCS: 36415 ×3; 71045; 78452; 80053 ×2; 80061; 82550; 82948 ×2; 83036; 84443; 84484 ×2; 85025 ×2; 93005; 93017; 93306; 94799 ×2; 99284; A9502; G0378 ×3; J1650; J2470 ×2; J2785